=== PATIENT | male | born 1965 | race African-American/Black ===

== ENCOUNTER 2023-02-22 08:15 | Emergency (ER) | payer MEDICARE, MEDICAID ==
[~2023-02-22] VITALS: Ht 175.3 cm; Wt 73.0 kg
[2023-02-22 08:21] VITALS: BP 133/104; RESP 20; TEMP 98; O2SAT 98
[2023-02-22 08:23] VITALS: PULSE 95
[2023-02-22 08:42] LABS: CLARITY URINE CLEAR (CLEAR); COLOR URINE YELLOW (YELLOW); GLUCOSE URINE NEGATIVE (NEGATIVE); KETONES URINE NEGATIVE (NEGATIVE); LEUKOCYTE ESTERASE URINE NEGATIVE (NEGATIVE); NITRITE URINE NEGATIVE (NEGATIVE); OCCULT BLOOD URINE NEGATIVE (NEGATIVE); PH URINE 6.5 (4.5-8.0); PROTEIN URINE NEGATIVE (NEGATIVE); SPECIFIC GRAVITY URINE 1.016 (1.005-1.030); UROBILINOGEN URINE 0.2 E.U./dL (0.2-1.0)
== END 2023-02-22 10:40 | disposition left against medical advice (07) ==
LOC: ER 08:15
DX: R07.89 Other chest pain (principal); Z53.21 Procedure and treatment not carried out due to patient leaving prior to being seen by health care provider
CPT/HCPCS: 71045; 81003; 93005; 99281

== ENCOUNTER 2023-12-06 00:02 | Emergency (ER) | payer MEDICAID ==
[~2023-12-06] VITALS: Ht 172.7 cm; Wt 80.0 kg
[2023-12-06 00:04] VITALS: BP 131/82; PULSE 95; RESP 18; TEMP 98.2; O2SAT 100
[2023-12-06] MEDS ORDERED: ACET-2708 MT (00:12)
[2023-12-06] MEDS: ACETAMINOPHEN 325MG TABLET PO ONE (00:21)
== END 2023-12-06 00:25 ==
LOC: ER 00:02
DX: R51.9 Headache, unspecified (principal); J44.9 Chronic obstructive pulmonary disease, unspecified; F31.9 Bipolar disorder, unspecified; Z00.00 Encounter for general adult medical examination without abnormal findings; Z86.59 Personal history of other mental and behavioral disorders
CPT/HCPCS: 99283; Z7610 ×5